=== PATIENT | male | born 1960 | race Caucasian/White ===

== ENCOUNTER 2018-09-25 12:09 | Outpatient (CLI) | payer BC, SELFPAY ==
[2018-09-25 12:50] LABS: ALT 32 U/L (12-78); AST 22 U/L (15-37); Albumin 3.9 g/dL (3.4-5.0); Alkaline Phosphatase 88 U/L (46-116); Anion Gap 5.5 mmol/L (3-11); BUN 10 mg/dL (7-18); Bilirubin, Total 0.6 mg/dL (0.2-1.0); CO2 30.5 mmol/L (21.0-32.0); Calcium 8.5 mg/dL (8.5-10.1); Chloride 103 mmol/L (98-107); Glucose 49 mg/dL (70-100); Potassium 4.3 mmol/L (3.5-5.1); Sodium 139 mmol/L (136-145); Total Protein 6.7 g/dL (6.4-8.2)
== END 2018-09-25 12:29 ==
PROVIDERS: Visit Provider Internal Medicine Hematology & Oncology
DX: C91.91 Lymphoid leukemia, unspecified, in remission (principal); D59.1 Other autoimmune hemolytic anemias; E53.8 Deficiency of other specified B group vitamins; D80.1 Nonfamilial hypogammaglobulinemia
CPT/HCPCS: 36415; 80053

== ENCOUNTER 2018-10-21 13:07 | Outpatient (CLI) | payer BC, SELFPAY ==
[2018-10-21 13:35] LABS: Abs Immature Grans 0.01 k/cumm (0.0-0.09); Absolute Basophil Count 0.01 k/cumm (0.0-0.2); Absolute Eosinophil Count 0.01 k/cumm (0.0-0.7); Absolute Lymphocyte Count 5.25 k/cumm (1.2-3.4); Absolute Monocyte Count 0.24 k/cumm (0.11-0.7); Absolute Neutrophil Count 2.24 k/cumm (1.2-6.7); Basophils % 0.1; Eosinophils % 0.1; HCT 37.9 % (40.0-50.0); HGB 13.2 g/dL (13.5-17.5); Immature Grans % 0.1; Mean Corp. HGB Concentration 34.8 g/dL (32.0-36.0); Mean Corpuscular Hemoglobin 36.7 pg (27.0-33.0); Mean Corpuscular Volume 105.3 fL (80-95); Mean Platelet Volume 9.2 fL (8.0-11.0); Monocytes % 3.1; Neutrophils % 28.9; Platelet Count 181 x1000/uL (130-400); RBC Distribution Width 11.6 % (11.8-14.1); White Blood Cell Count 7.76 k/cumm (4.4-10.8)
[2018-10-21 13:51] LABS: Diff Comment Agrees w/ Instrument
[2018-10-21 13:52] LABS: Macrocytosis 2+
[2018-10-21 13:53] LABS: Lymphocytes % 67.7
[2018-10-21 13:54] LABS: ALT 26 U/L (12-78); AST 17 U/L (15-37); Albumin 3.7 g/dL (3.4-5.0); Alkaline Phosphatase 83 U/L (46-116); Anion Gap 7.4 mmol/L (3-11); BUN 13 mg/dL (7-18); Bilirubin, Total 0.6 mg/dL (0.2-1.0); CO2 30.6 mmol/L (21.0-32.0); CREATININE 0.86 mg/dL (0.70-1.30); Calcium 8.6 mg/dL (8.5-10.1); Chloride 105 mmol/L (98-107); Glucose 68 mg/dL (70-100); LDH 123 U/L (85-227); Potassium 4.4 mmol/L (3.5-5.1); Sodium 143 mmol/L (136-145); Total Protein 6.5 g/dL (6.4-8.2)
== END 2018-10-21 13:27 ==
PROVIDERS: Visit Provider Internal Medicine Hematology & Oncology
DX: C91.91 Lymphoid leukemia, unspecified, in remission (principal); D59.1 Other autoimmune hemolytic anemias; E53.8 Deficiency of other specified B group vitamins; D80.1 Nonfamilial hypogammaglobulinemia
CPT/HCPCS: 36415; 80053; 83615; 85025

== ENCOUNTER 2019-02-12 11:37 | Outpatient (REF) | payer BC, SELFPAY ==
[2019-02-12 12:00] LABS: CREATININE 0.76 mg/dL (0.70-1.30)
== END 2019-02-12 11:57 ==
LOC: LBN 11:37
PROVIDERS: Visit Provider Internal Medicine Hematology & Oncology
DX: D80.1 Nonfamilial hypogammaglobulinemia (principal)
CPT/HCPCS: 82565

== ENCOUNTER 2020-04-07 14:13 | Outpatient (CLI) | payer BC, SELFPAY ==
--- NOTE | 2020-04-07 | DI.CT_ITS ---
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 TECHNIQUE: Imaging Protocol: Axial CT angiography was performed with multi-slice acquisition and mu lti-planar and/or 3D reconstructions. CONTRAST MATERIAL: Intravenous: Omnipaque 350 Contrast volume:74 cc COMPARISON: No exams were available for comparison FINDINGS: Pulmonary Arteries: No evidence of filling defect to suggest pulmonary emboli. Tracheobronchial tree: Patent where visualized. Mediastinum and Ilana: Bilateral hilar as well as mediastinal adenopathy. Bilateral axillary adenopat hy. Pulmonary parenchyma: No consolidation or dominant measurable mass. Expiratory changes.. Pleura: No effusion or pneumothorax. Heart: The heart is not dilated. No coronary artery calcifications are seen. Aorta: Thoracic aorta non-dilated. Mild calcification. Upper abdomen: Splenomegaly.. Bones: Normal. IMPRESSION: Bilateral axillary, hilar as well as mediastinal adenopathy. No evidence of pulmonary embolism. RADIATION DOSE DELIVERED: 344.86mGy.cm Total DLP DATA REPOSITORY: All CT scans at this facility are submitted to the National Radiology Data Registry (NRDR) Dose Index Registry (DIR) with the [employer] ([employer]). RADIATION OPTIMIZATION: All CT scans at this facility use at least one of these dose optimization te chniques: automated exposure control; mA and/or kV adjustment per patient size (includes targeted exa ms where dose is matched to clinical indication); or iterative reconstruction.
[2020-04-07] MEDS: Omnipaque 350 MG/ML 100 ML BTL IJ (15:22)
[2020-04-07] MEDS: Normal Saline - Diluent 50 ML VIAL IV (15:22)
== END 2020-04-07 14:33 ==
PROVIDERS: PCP Family Medicine; Visit Provider Internal Medicine Hematology & Oncology
DX: D46.9 Myelodysplastic syndrome, unspecified (principal); R06.09 Other forms of dyspnea; C91.91 Lymphoid leukemia, unspecified, in remission; R59.0 Localized enlarged lymph nodes; R16.1 Splenomegaly, not elsewhere classified
CPT/HCPCS: 71275; J3490

== ENCOUNTER 2020-04-08 03:54 | Outpatient (RCR) | payer BC, SELFPAY ==
[2020-04-07 14:37] LABS: HGB 8.7 g/dL (13.5-17.5); Mean Corp. HGB Concentration 32.2 g/dL (32.0-36.0); Mean Corpuscular Hemoglobin 36.1 pg (27.0-33.0); Mean Platelet Volume 10.9 fL (8.0-11.0); Platelet Count 194 x1000/uL (130-400); RBC 2.41 m/cumm (4.50-6.00); RBC Distribution Width 13.7 % (11.8-14.1); Reticulocyte 1.8 % (0.5-2.4)
[2020-04-07 14:55] LABS: ALT 38 U/L (16-63); AST 13 U/L (15-37); Albumin 3.9 g/dL (3.4-5.0); Alkaline Phosphatase 166 U/L (46-116); Anion Gap 6.4 mmol/L (3-11); BUN 16 mg/dL (7-18); CO2 29.6 mmol/L (21.0-32.0); CREATININE 0.96 mg/dL (0.70-1.30); Calcium 8.9 mg/dL (8.5-10.1); Chloride 102 mmol/L (98-107); Glucose 98 mg/dL (74-106); LDH 175 U/L (85-227); Sodium 138 mmol/L (136-145); Total Protein 6.4 g/dL (6.4-8.2)
[2020-04-07 15:10] LABS: Absolute Monocyte Count 0.24 k/cumm (0.11-0.7)
[2020-04-07 15:14] LABS: Absolute Lymphocyte Count 22.56 k/cumm (1.2-3.4); Atypical Lymphocytes % 2
[2020-04-07 15:15] LABS: Promyelocytes % 0 %
[2020-04-07 15:16] LABS: Anisocytosis 1+; Diff Comment Manual Differential; Hypochromasia 1+; Macrocytosis 2+; Nucleated RBC 1 /100WBC; Polychromasia Present
[2020-04-08] VITALS (8 sets, daily range): BP systolic 119–143; BP diastolic 65–73; PULSE 66–75; RESP 18–19; TEMP 36.1–36.7; O2SAT 95–99
[2020-04-08 09:21] LABS: Haptoglobin 169 mg/dL (32-197)
[2020-04-08] MEDS: Normal Saline Flush 10 ML SYR 20 ML IVP (15:51)
== END 2020-04-20 23:59 | disposition home or self-care (01) ==
LOC: INF 03:54
PROVIDERS: Nurse Practitioner Family; PCP Family Medicine; Referring Provider Family Medicine; Visit Provider Internal Medicine Hematology & Oncology
DX: D46.9 Myelodysplastic syndrome, unspecified (principal)
CPT/HCPCS: 36415; 36430; 80053; 86850; 86900; 86901; 86920; 86945; 83010; 83615; 85025; 85045; 86644; P9016